=== PATIENT | male | born 1960 | race Caucasian/White ===

== ENCOUNTER 2020-11-26 18:13 | Emergency (ER) | payer OTHER ==
[2020-11-26] MEDS ORDERED: methylPREDNISolone Sodium Succinate 125 MG/2 ML SDV IV ONE (18:18)
[2020-11-26] MEDS ORDERED: diphenhydrAMINE 50 MG/ML SDV IVPUSH ONE (18:18)
[2020-11-26] MEDS ORDERED: Famotidine 20 MG/2 ML SDV IVPUSH ONE (18:18)
[2020-11-26] MEDS ORDERED: Sodium Chloride 0.9% 1,000 ML IV SCH (18:30)
--- NOTE | 2020-11-26 18:37 | EDM.PDOC ---
ED HPI GENERAL MEDICAL PROBLEM - General Chief Complaint: Allergic Reaction Stated Complaint: BEE STING Time Seen by Provider: 11/26/20 18:23 Source of Information: Reports: Patient History Limitations: Reports: No Limitations - History of Present Illness INITIAL COMMENTS - FREE TEXT/NARRATIVE: 60 yo male present to the ER with multiple insect stings to the left flank and right hand. He did give himself an epi auto-inject dose and single Benadryl. He does have rash to left flank and swollen right hand. mild tightness in his chest. - Related Data Allergies Allergy/AdvReac Type Severity Reaction Status Date / Time No Known Allergies Allergy Verified 11/26/20 18:36 Home Meds: Home Meds NK [No Known Home Meds] 11/26/20 [History] ED ROS ALLERGIC REACTION - Review of Systems Review Of Systems: See Below Constitutional: Denies: Fever, Chills Respiratory: Denies: Shortness of Breath Cardiovascular: Reports: Chest Pain (tightness following use of the epi) ED EXAM GENERAL NO PERIP PULSE - Physical Exam Exam: See Below Exam Limited By: No Limitations General Appearance: Alert, WD/WN, No Apparent Distress Neck: No: Lymphadenopathy (R), Lymphadenopathy (L) Respiratory/Chest: No Respiratory Distress, Lungs Clear Extremities: Other (swollen right hand) Skin Exam: Rash (left flank) Course - Vital Signs Last Recorded V/S: Last Vital Signs Temp 36.2 C 11/26/20 18:42 Pulse 70 11/26/20 18:42 Resp 16 11/26/20 18:42 BP 157/78 H 11/26/20 18:42 Pulse Ox 97 11/26/20 18:42 - Orders/Labs/Meds Orders: Active Orders 24 hr Category Date Time Status Sodium Chloride 0.9% [Normal Saline] 1,000 ml Med 11/26/20 18:30 Active IV .BOLUS Medication Orders Sodium Chloride (Normal Saline) 1,000 mls @ 500 mls/hr IV .BOLUS ЛЮИЯ Last Admin: 11/26/20 18:45 Dose: 500 mls/hr Documented by: TERESA Meds: Medications Generic Name Dose Route Start Last Admin Trade Name Freq PRN Reason Stop Dose Admin Sodium Chloride 1,000 mls @ 500 mls/hr 11/26/20 18:30 11/26/20 18:45 Normal Saline IV 500 mls/hr .BOLUS ЮЛИЯ Administration Discontinued Medications Generic Name Dose Route Start Last Admin Trade Name Sharath PRN Reason Stop Dose Admin Diphenhydramine HCl 50 mg 11/26/20 18:18 11/26/20 18:44 Diphenhydramine 50 Mg/Ml Sdv IVPUSH 11/26/20 18:19 50 mg ONETIME ONE Administration Famotidine 20 mg 11/26/20 18:18 11/26/20 18:44 Famotidine 20 Mg/2 Ml Sdv IVPUSH 11/26/20 18:19 20 mg ONETIME ONE Administration Methylprednisolone Sodium Succinate 125 mg 11/26/20 18:18 11/26/20 18:44 Methylprednisolone Sodium Succinate 125 Mg/2 Ml Sdv IV 11/26/20 18:19 125 mg ONETIME ONE Administration - Re-Assessments/Exams Free Text/Narrative Re-Assessment/Exam: 11/26/20 19:39 relief of chest tightness. hive surrounding sting vector and swelling in right hand decreased but not eliminated. Departure - Departure Time of Disposition: 19:44 Disposition: Home, Self-Care 01 Condition: Good Clinical Impression: Insect sting allergy, current reaction Qualifiers: Encounter type: initial encounter Injury intent: accidental or unintentional Qualified Code(s): T63.481A - Toxic effect of venom of other arthropod, accidental (unintentional), initial encounter - Discharge Information *PRESCRIPTION DRUG MONITORING PROGRAM REVIEWED*: Not Applicable *COPY OF PRESCRIPTION DRUG MONITORING REPORT IN PATIENT FAIZAN: Not Applicable Instructions: Anaphylactic Reaction, Adult Referrals: PCP,None [Primary Care Provider] - Forms: ED Department Discharge Additional Instructions: epi-auto inject 2 pack use Benadryl this evening if continued to itch may use topical also increase fluid intake with goal 1.5-2 Liters over the next few days Sepsis Event Note (ED) - Focused Exam Vital Signs: Vital Signs Temp Pulse Resp BP Pulse Ox 11/26/20 18:42 36.2 C 70 16 157/78 H 97 11/26/20 18:21 36.2 C 70 16 157/78 H 97 - My Orders Last 24 Hours: My Active Orders 11/26/20 18:30 Sodium Chloride 0.9% [Normal Saline] 1,000 ml IV .BOLUS - Assessment/Plan Last 24 Hours: My Active Orders 11/26/20 18:30 Sodium Chloride 0.9% [Normal Saline] 1,000 ml IV .BOLUS
== END 2020-11-26 19:58 | disposition home or self-care (01) ==
LOC: JP.ED 18:13
DX: T63.481A Toxic effect of venom of other arthropod, accidental (unintentional), initial encounter (principal)
CPT/HCPCS: 96374; 96375; 99282; J1200; J2930; J3490; J7030